=== PATIENT | female | born 1985 | race Caucasian/White ===

== ENCOUNTER 2018-03-18 19:00 | Inpatient (IN) | payer MEDICAID ==
[~2018-03-18] VITALS: Ht 170.2 cm; Wt 121.6 kg
[2018-03-18 19:10] VITALS: BP_SYST 124
[2018-03-18] MEDS ORDERED: KETOROLAC TROMETHAMINE 30 MG VIAL IVP ONE ×2 (20:00→22:30)
[2018-03-18] MEDS ORDERED: MORPHINE 4 MG/ML INJ. SYRINGE IVP ONE (20:00)
[2018-03-18] MEDS ORDERED: DIPHENHYDRAMINE INJ 50 MG/ML VIAL IVP ONE (20:00)
[2018-03-18 20:01] LABS: HEMATOCRIT 41.2 % (36-48); HEMOGLOBIN 14.4 g/dL (12.0-16.0); MEAN CORPUSCULAR HEMOGLOBIN 31 pg (27-31); MEAN CORPUSCULAR HGB CONC 35 % (32-36); MEAN CORPUSCULAR VOLUME 89 fL (79.0-98.0); PLATELET COUNT (AUTO) 258 K/uL (130-430); RED BLOOD CELL COUNT(AUTO) 4.61 MIL/uL (4.2-6.2); RED CELL DISTRIBUTION WIDTH 11.9 % (9.0-15.0); WHITE BLOOD COUNT (AUTO) 19.3 K/uL (4.8-10.8)
[2018-03-18 20:06] LABS: PROTHROMBIN TIME 10.2 SECS (9.5-12.5)
[2018-03-18 20:11] LABS: BAND % (MANUAL) 2 % (0-6); BASOPHILS % (MANUAL) 0 % (0-2); EOSINOPHILS % (MANUAL) 0 % (0-7); LYMPHOCYTES % (MANUAL) 7 % (20-46); MONOCYTES % (MANUAL) 0 % (0-11)
[2018-03-18 20:15] LABS: ALBUMIN 4.3 g/dL (3.4-4.8); CALCIUM 9.9 mg/dL (8.4-11.0); POTASSIUM 3.7 mmol/L (3.5-5.1); TOTAL BILIRUBIN 0.9 mg/dL (0.0-1.0)
[2018-03-18 20:23] LABS: CREATININE 1.14 mg/dL (0.55-1.30)
[2018-03-18 20:40] LABS: BILIRUBIN,URINE NEGATIVE (NEGATIVE); BLOOD, URINE 2+ (NEGATIVE); CLARITY/URINE SL CLOUDY (CLEAR); COLOR,URINE YELLOW (YELLOW); GLUCOSE,URINE NEGATIVE (NEGATIVE); KETONES,URINE 1+ (NEGATIVE); LEUKOCYTE ESTERASE ,URINE 2+ (NEGATIVE); NITRITE, URINE NEGATIVE (NEGATIVE); PH,URINE 5.5 (5.0-8.0); PROTEIN URINE TRACE (NEGATIVE); UROBILINOGEN,URINE 0.2 (0.2-1.0)
[2018-03-18 20:45] LABS: BACTERIA,URINE MODERATE /HPF (None Seen); RBC,URINE 50-80 /HPF (0-3); WBC,URINE >100 /HPF (0-3)
[2018-03-18] MEDS ORDERED: PIPERACILLIN/TAZO 3.375 GM in NS 50 ML IV ONE (21:30)
[2018-03-18] MEDS ORDERED: PIPERACILLIN/TAZOBACTAM 3.375 GM/VIAL (ZOSYN) IV ONE ×2 (21:36→23:46)
[2018-03-18] MEDS ORDERED: MORPHINE 2 MG/ML INJ. SYRINGE IVP ONE (22:30)
[2018-03-18] MEDS ORDERED: TEMAZEPAM 15 MG CAPSULE PO PRN (22:45)
[2018-03-18] MEDS ORDERED: ONDANSETRON HCL 4 MG/2 ML VIAL IVP PRN (22:45)
[2018-03-18] MEDS ORDERED: DIPHENHYDRAMINE INJ 50 MG/ML VIAL IVP PRN ×2 (22:45→23:15)
[2018-03-18] MEDS ORDERED: MORPHINE 4 MG/ML INJ. SYRINGE IVP PRN (22:45)
[2018-03-18] MEDS ORDERED: NACL 0.9% IV ONE (23:00)
[2018-03-18] MEDS ORDERED: GENTAMICIN 100 mg/50 mL NS 50 ML IV ONE ×2 (23:00→23:46)
[2018-03-18 23:03] VITALS: BP_SYST 122
[2018-03-18] MEDS: TAMSULOSIN HCL 0.4 MG CAP PO SCH (23:34)
[2018-03-18] MEDS: ONDANSETRON HCL 4 MG/2 ML VIAL IVP PRN (23:54)
[2018-03-19 02:00] VITALS: BP_SYST 115
[2018-03-19 03:19] VITALS: BP_SYST 104
[2018-03-19] MEDS: NACL 0.9% 1,000 ML IV SCH ×4 (04:40→18:10)
[2018-03-19] MEDS: PIPERACILLIN/TAZO 3.375/DEX-IS 50 ML IV SCH ×3 (05:35→17:40)
[2018-03-19] MEDS: MORPHINE 4 MG/ML INJ. SYRINGE IVP PRN ×2 (06:30→11:52)
[2018-03-19 06:53] LABS: INR 1.1 (0.8-1.2); PROTHROMBIN TIME 10.9 SECS (9.5-12.5)
[2018-03-19 07:03] LABS: BASOPHILS # (AUTO) 0.1 K/uL (0.0-0.2); BASOPHILS % (AUTO) 0.2 % (0.0-2.0); HEMATOCRIT 33.7 % (36-48); HEMOGLOBIN 11.8 g/dL (12.0-16.0); LYMPHOCYTES # (AUTO) 0.2 K/uL (1.0-5.5); LYMPHOCYTES % (AUTO) 0.8 % (20.5-51.5); MEAN CORPUSCULAR HEMOGLOBIN 31 pg (27-31); MEAN CORPUSCULAR HGB CONC 35 % (32-36); MEAN CORPUSCULAR VOLUME 89 fL (79.0-98.0); MONOCYTES # (AUTO) 0.5 K/uL (0.0-1.0); MONOCYTES % (AUTO) 1.8 % (1.7-9.3); NEUTROPHILS # (AUTO) 26.2 K/uL (1.8-7.7); NEUTROPHILS % (AUTO) 97.2 % (40.0-70.0); PLATELET COUNT (AUTO) 201 K/uL (130-430); RED CELL DISTRIBUTION WIDTH 12.2 % (9.0-15.0)
[2018-03-19 07:32] LABS: ALBUMIN 2.9 g/dL (3.4-4.8); CALCIUM 8.1 mg/dL (8.4-11.0); CREATININE 1.2 mg/dL (0.55-1.30); POTASSIUM 3.8 mmol/L (3.5-5.1)
[2018-03-19 08:00] VITALS: BP_SYST 119
[2018-03-19] MEDS: TAMSULOSIN HCL 0.4 MG CAP PO SCH ×2 (08:21→23:18)
[2018-03-19] MEDS ORDERED: GENTAMICIN 100 mg/50 mL NS 50 ML IV ONE (12:00)
[2018-03-19 12:02] VITALS: BP_SYST 135
[2018-03-19] MEDS: ACETAMINOPHEN 325 MG TABLET PO PRN (12:04)
[2018-03-19 16:02] VITALS: BP_SYST 124
[2018-03-19] MEDS: ONDANSETRON HCL 4 MG/2 ML VIAL IVP PRN (18:33)
[2018-03-20] MEDS: NACL 0.9% 1,000 ML IV SCH ×5 (00:13→23:17)
[2018-03-20] MEDS: PIPERACILLIN/TAZO 3.375/DEX-IS 50 ML IV SCH ×5 (00:13→23:17)
[2018-03-20 00:28] VITALS: BP_SYST 134
[2018-03-20] MEDS: MORPHINE 4 MG/ML INJ. SYRINGE IVP PRN ×2 (03:42→11:16)
[2018-03-20 06:47] LABS: BASOPHILS % (AUTO) 0.1 % (0.0-2.0); EOSINOPHILS % (AUTO) 0.2 % (0.0-4.0); HEMATOCRIT 35.5 % (36-48); HEMOGLOBIN 12.2 g/dL (12.0-16.0); LYMPHOCYTES # (AUTO) 0.9 K/uL (1.0-5.5); LYMPHOCYTES % (AUTO) 5.4 % (20.5-51.5); MEAN CORPUSCULAR HEMOGLOBIN 30 pg (27-31); MEAN CORPUSCULAR HGB CONC 34 % (32-36); MEAN CORPUSCULAR VOLUME 88 fL (79.0-98.0); MONOCYTES # (AUTO) 0.8 K/uL (0.0-1.0); MONOCYTES % (AUTO) 4.9 % (1.7-9.3); NEUTROPHILS # (AUTO) 15.1 K/uL (1.8-7.7); NEUTROPHILS % (AUTO) 89.4 % (40.0-70.0); PLATELET COUNT (AUTO) 170 K/uL (130-430); RED BLOOD CELL COUNT(AUTO) 4.05 MIL/uL (4.2-6.2); RED CELL DISTRIBUTION WIDTH 12.5 % (9.0-15.0); WHITE BLOOD COUNT (AUTO) 16.8 K/uL (4.8-10.8)
[2018-03-20 06:58] LABS: CALCIUM 8.5 mg/dL (8.4-11.0); CREATININE 0.88 mg/dL (0.55-1.30); POTASSIUM 3.8 mmol/L (3.5-5.1)
[2018-03-20 08:00] VITALS: BP_SYST 116
[2018-03-20] MEDS: TAMSULOSIN HCL 0.4 MG CAP PO SCH ×2 (08:05→20:22)
[2018-03-20] MEDS ORDERED: QUEtiapine FUMARATE 25 MG TABLET PO SCH (09:00)
[2018-03-20] MEDS: ONDANSETRON HCL 4 MG/2 ML VIAL IVP PRN ×3 (11:32→21:57)
[2018-03-20] MEDS ORDERED: GENTAMICIN 100 mg/50 mL NS 50 ML IV ONE (12:00)
[2018-03-20 12:02] VITALS: BP_SYST 117
[2018-03-20 16:02] VITALS: BP_SYST 122
[2018-03-20 20:00] VITALS: BP_SYST 129
[2018-03-20] MEDS: ACETAMINOPHEN 325 MG TABLET PO PRN (21:56)
[2018-03-21] VITALS: BP_SYST 124
[2018-03-21] MEDS: PIPERACILLIN/TAZO 3.375/DEX-IS 50 ML IV SCH (05:00)
[2018-03-21] MEDS: ACETAMINOPHEN 325 MG TABLET PO PRN (05:02)
[2018-03-21 07:13] LABS: BASOPHILS # (AUTO) 0.1 K/uL (0.0-0.2); BASOPHILS % (AUTO) 0.4 % (0.0-2.0); EOSINOPHILS # (AUTO) 0.2 K/uL (0.0-0.4); EOSINOPHILS % (AUTO) 1.2 % (0.0-4.0); HEMATOCRIT 33.2 % (36-48); HEMOGLOBIN 11.4 g/dL (12.0-16.0); LYMPHOCYTES # (AUTO) 1.6 K/uL (1.0-5.5); LYMPHOCYTES % (AUTO) 10.2 % (20.5-51.5); MEAN CORPUSCULAR HEMOGLOBIN 31 pg (27-31); MEAN CORPUSCULAR HGB CONC 34 % (32-36); MEAN CORPUSCULAR VOLUME 89 fL (79.0-98.0); MONOCYTES # (AUTO) 0.8 K/uL (0.0-1.0); MONOCYTES % (AUTO) 5.3 % (1.7-9.3); NEUTROPHILS # (AUTO) 12.9 K/uL (1.8-7.7); NEUTROPHILS % (AUTO) 82.9 % (40.0-70.0); PLATELET COUNT (AUTO) 169 K/uL (130-430); RED BLOOD CELL COUNT(AUTO) 3.72 MIL/uL (4.2-6.2); RED CELL DISTRIBUTION WIDTH 12.3 % (9.0-15.0); WHITE BLOOD COUNT (AUTO) 15.6 K/uL (4.8-10.8)
[2018-03-21 07:23] LABS: ALBUMIN 2.5 g/dL (3.4-4.8); CALCIUM 8.7 mg/dL (8.4-11.0); CREATININE 0.77 mg/dL (0.55-1.30); POTASSIUM 3.4 mmol/L (3.5-5.1)
[2018-03-21 08:08] VITALS: BP_SYST 123
[2018-03-21] MEDS: TAMSULOSIN HCL 0.4 MG CAP PO SCH ×2 (09:08→21:41)
[2018-03-21] MEDS: ONDANSETRON HCL 4 MG/2 ML VIAL IVP PRN ×3 (10:53→21:42)
[2018-03-21] MEDS: KETOROLAC TROMETHAMINE 15 MG VIAL IVP PRN ×2 (10:54→21:42)
[2018-03-21] MEDS: NACL 0.9% 1,000 ML IV SCH ×2 (10:59→17:12)
[2018-03-21 12:02] VITALS: BP_SYST 133
[2018-03-21] MEDS ORDERED: POTASSIUM CHLORIDE 20 MEQ TAB.PRT.SR PO ONE (14:00)
[2018-03-21 15:19] VITALS: BP_SYST 134
[2018-03-21 20:00] VITALS: BP_SYST 130
[2018-03-22 00:46] VITALS: BP_SYST 129
[2018-03-22] MEDS: NACL 0.9% 1,000 ML IV SCH ×4 (01:17→16:37)
[2018-03-22 06:55] LABS: BASOPHILS # (AUTO) 0.1 K/uL (0.0-0.2); EOSINOPHILS # (AUTO) 0.2 K/uL (0.0-0.4); EOSINOPHILS % (AUTO) 1.2 % (0.0-4.0); HEMATOCRIT 31.4 % (36-48); HEMOGLOBIN 10.9 g/dL (12.0-16.0); LYMPHOCYTES # (AUTO) 2.5 K/uL (1.0-5.5); LYMPHOCYTES % (AUTO) 18.4 % (20.5-51.5); MEAN CORPUSCULAR HEMOGLOBIN 31 pg (27-31); MEAN CORPUSCULAR HGB CONC 35 % (32-36); MEAN CORPUSCULAR VOLUME 89 fL (79.0-98.0); MONOCYTES % (AUTO) 7.3 % (1.7-9.3); NEUTROPHILS # (AUTO) 9.9 K/uL (1.8-7.7); NEUTROPHILS % (AUTO) 72.1 % (40.0-70.0); PLATELET COUNT (AUTO) 184 K/uL (130-430); RED BLOOD CELL COUNT(AUTO) 3.53 MIL/uL (4.2-6.2); RED CELL DISTRIBUTION WIDTH 12.7 % (9.0-15.0); WHITE BLOOD COUNT (AUTO) 13.7 K/uL (4.8-10.8)
[2018-03-22 07:05] LABS: ALBUMIN 2.5 g/dL (3.4-4.8); CALCIUM 8.6 mg/dL (8.4-11.0); CREATININE 0.86 mg/dL (0.55-1.30); POTASSIUM 3.5 mmol/L (3.5-5.1); TOTAL BILIRUBIN 0.9 mg/dL (0.0-1.0)
[2018-03-22 08:02] VITALS: BP_SYST 144
[2018-03-22] MEDS: TAMSULOSIN HCL 0.4 MG CAP PO SCH ×2 (08:51→20:37)
[2018-03-22 11:26] VITALS: BP_SYST 123
[2018-03-22 15:52] VITALS: BP_SYST 131
[2018-03-22 20:00] VITALS: BP_SYST 120
[2018-03-22] MEDS: ONDANSETRON HCL 4 MG/2 ML VIAL IVP PRN (20:37)
[2018-03-22] MEDS: KETOROLAC TROMETHAMINE 15 MG VIAL IVP PRN (22:03)
[2018-03-23] VITALS: BP_SYST 138
[2018-03-23] MEDS: NACL 0.9% 1,000 ML IV SCH ×3 (00:38→08:53)
[2018-03-23 06:40] VITALS: BP_SYST 128
[2018-03-23 07:11] LABS: CALCIUM 8.8 mg/dL (8.4-11.0); CREATININE 0.86 mg/dL (0.55-1.30); POTASSIUM 3.2 mmol/L (3.5-5.1)
[2018-03-23 07:46] LABS: BASOPHILS # (AUTO) 0.1 K/uL (0.0-0.2); BASOPHILS % (AUTO) 0.5 % (0.0-2.0); EOSINOPHILS # (AUTO) 0.2 K/uL (0.0-0.4); EOSINOPHILS % (AUTO) 1.7 % (0.0-4.0); HEMATOCRIT 32.9 % (36-48); HEMOGLOBIN 11.1 g/dL (12.0-16.0); LYMPHOCYTES # (AUTO) 2.9 K/uL (1.0-5.5); LYMPHOCYTES % (AUTO) 23.4 % (20.5-51.5); MEAN CORPUSCULAR HEMOGLOBIN 30 pg (27-31); MEAN CORPUSCULAR HGB CONC 34 % (32-36); MEAN CORPUSCULAR VOLUME 89 fL (79.0-98.0); MONOCYTES # (AUTO) 1.1 K/uL (0.0-1.0); MONOCYTES % (AUTO) 9.1 % (1.7-9.3); NEUTROPHILS # (AUTO) 7.9 K/uL (1.8-7.7); NEUTROPHILS % (AUTO) 65.3 % (40.0-70.0); PLATELET COUNT (AUTO) 231 K/uL (130-430); RED CELL DISTRIBUTION WIDTH 12.5 % (9.0-15.0); WHITE BLOOD COUNT (AUTO) 12.2 K/uL (4.8-10.8)
[2018-03-23] MEDS ORDERED: LR 1,000 ML IV SCH (08:17)
[2018-03-23] MEDS ORDERED: MORPHINE 4 MG/ML INJ. SYRINGE IVP PRN ×2 (08:30)
[2018-03-23] MEDS ORDERED: METOCLOPRAMIDE HCL 10 MG/2 ML VIAL IVP PRN (08:30)
[2018-03-23] MEDS ORDERED: LR 1,000 ML IV.SOLN IV ONE (08:55)
[2018-03-23] MEDS ORDERED: ONDANSETRON HCL 4 MG/2 ML VIAL ONE (08:55)
[2018-03-23] MEDS ORDERED: NS IRRIG SOLN 1000 ML IR ONE (08:55)
[2018-03-23] MEDS ORDERED: ROCURONIUM BROMIDE 10 MG/ML (ZEMURON) ONE (08:55)
[2018-03-23] MEDS ORDERED: MIDAZOLAM HCL 5 MG/ML VIAL (VERSED) IV ONE (08:55)
[2018-03-23] MEDS ORDERED: PHENYLEPHRINE HCL 10 MG/ML VIAL (NEOSYNEPHRINE) ONE (08:55)
[2018-03-23] MEDS ORDERED: GLYCOPYRROLATE 0.2 MG/ML VIAL ONE (08:55)
[2018-03-23] MEDS ORDERED: fentaNYL CITRATE 250 MCG/5 ML AMP ONE (08:55)
[2018-03-23] MEDS ORDERED: NEOSTIGMINE METHYLSULFATE 1 MG/ML, 10 ML VIAL ONE (08:55)
[2018-03-23] MEDS ORDERED: NS 1000 ML IV.SOLN IV ONE (08:55)
[2018-03-23] MEDS ORDERED: CEFAZOLIN 2 GM IVPB PREMIX 50 ML IV ONE (08:55)
[2018-03-23] MEDS ORDERED: PROPOFOL 200MG/ 20ML VIAL (DIPRIVAN) IV ONE (08:55)
[2018-03-23] MEDS ORDERED: SEVOFLURANE 15 MIN GAS INH ONE (08:55)
[2018-03-23] MEDS ORDERED: ONDANSETRON HCL 4 MG/2 ML VIAL IVP PRN (09:00)
[2018-03-23] MEDS ORDERED: ACETAMINOPHEN 325 MG TABLET PO PRN (09:00)
[2018-03-23] MEDS ORDERED: MORPHINE 4 MG/ML INJ. SYRINGE ONE (09:19)
[2018-03-23] MEDS: MORPHINE 4 MG/ML INJ. SYRINGE IVP PRN ×2 (09:30→09:45)
[2018-03-23 09:32] VITALS: BP_SYST 128
[2018-03-23] MEDS ORDERED: METOCLOPRAMIDE HCL 10 MG/2 ML VIAL ONE (09:32)
[2018-03-23] MEDS ORDERED: POTASSIUM CHLORIDE 20 MEQ TAB.PRT.SR PO ONE (09:45)
[2018-03-23 10:10] VITALS: BP_SYST 144
[2018-03-23] MEDS: TAMSULOSIN HCL 0.4 MG CAP PO SCH ×2 (10:15→20:59)
[2018-03-23] MEDS: KETOROLAC TROMETHAMINE 15 MG VIAL IVP PRN ×2 (13:01→20:56)
[2018-03-23] MEDS: metroNIDAZOLE 500 mg/NS 100 ML IV SCH ×2 (14:03→20:58)
[2018-03-23] MEDS: CEFAZOLIN 1 GM IVPB PREMIX 50 ML IV SCH ×2 (15:25→22:27)
[2018-03-23 16:00] VITALS: BP_SYST 135
[2018-03-23 20:00] VITALS: BP_SYST 137
[2018-03-23] MEDS ORDERED: CEFAZOLIN 1 GM IVPB PREMIX 50 ML IV ONE (21:50)
[2018-03-24] MEDS: NACL 0.9% 1,000 ML IV SCH ×4 (00:06→21:22)
[2018-03-24 00:45] VITALS: BP_SYST 152
[2018-03-24 06:49] LABS: ALBUMIN 2.5 g/dL (3.4-4.8); CALCIUM 8.4 mg/dL (8.4-11.0); CREATININE 0.68 mg/dL (0.55-1.30); POTASSIUM 3.2 mmol/L (3.5-5.1); TOTAL BILIRUBIN 0.8 mg/dL (0.0-1.0)
[2018-03-24 07:18] LABS: BASOPHILS % (AUTO) 0.2 % (0.0-2.0); EOSINOPHILS # (AUTO) 0.2 K/uL (0.0-0.4); EOSINOPHILS % (AUTO) 1.4 % (0.0-4.0); HEMATOCRIT 33.4 % (36-48); HEMOGLOBIN 11.5 g/dL (12.0-16.0); LYMPHOCYTES # (AUTO) 2.2 K/uL (1.0-5.5); LYMPHOCYTES % (AUTO) 15.4 % (20.5-51.5); MEAN CORPUSCULAR HEMOGLOBIN 31 pg (27-31); MEAN CORPUSCULAR HGB CONC 34 % (32-36); MEAN CORPUSCULAR VOLUME 89 fL (79.0-98.0); MONOCYTES % (AUTO) 7.1 % (1.7-9.3); NEUTROPHILS % (AUTO) 75.9 % (40.0-70.0); PLATELET COUNT (AUTO) 282 K/uL (130-430); RED BLOOD CELL COUNT(AUTO) 3.75 MIL/uL (4.2-6.2); RED CELL DISTRIBUTION WIDTH 11.9 % (9.0-15.0); WHITE BLOOD COUNT (AUTO) 14.4 K/uL (4.8-10.8)
[2018-03-24 08:09] VITALS: BP_SYST 140
[2018-03-24] MEDS: TAMSULOSIN HCL 0.4 MG CAP PO SCH ×2 (08:48→21:22)
[2018-03-24 12:18] VITALS: BP_SYST 134
[2018-03-24] MEDS ORDERED: POTASSIUM CHLORIDE 20 MEQ TAB.PRT.SR PO ONE (12:30)
[2018-03-24 16:00] VITALS: BP_SYST 127
[2018-03-24 20:00] VITALS: BP_SYST 123
[2018-03-25 00:06] VITALS: BP_SYST 127
[2018-03-25] MEDS: NACL 0.9% 1,000 ML IV SCH (05:39)
[2018-03-25 07:08] LABS: BASOPHILS % (AUTO) 0.3 % (0.0-2.0); EOSINOPHILS # (AUTO) 0.4 K/uL (0.0-0.4); EOSINOPHILS % (AUTO) 2.8 % (0.0-4.0); HEMATOCRIT 34.9 % (36-48); HEMOGLOBIN 11.3 g/dL (12.0-16.0); LYMPHOCYTES # (AUTO) 2.9 K/uL (1.0-5.5); LYMPHOCYTES % (AUTO) 18.6 % (20.5-51.5); MEAN CORPUSCULAR HEMOGLOBIN 29 pg (27-31); MEAN CORPUSCULAR HGB CONC 32 % (32-36); MEAN CORPUSCULAR VOLUME 89 fL (79.0-98.0); MONOCYTES % (AUTO) 6.6 % (1.7-9.3); NEUTROPHILS # (AUTO) 11.4 K/uL (1.8-7.7); NEUTROPHILS % (AUTO) 71.7 % (40.0-70.0); PLATELET COUNT (AUTO) 313 K/uL (130-430); RED BLOOD CELL COUNT(AUTO) 3.92 MIL/uL (4.2-6.2); RED CELL DISTRIBUTION WIDTH 12.1 % (9.0-15.0); WHITE BLOOD COUNT (AUTO) 15.7 K/uL (4.8-10.8)
[2018-03-25 07:30] LABS: ALBUMIN 2.6 g/dL (3.4-4.8); CALCIUM 8.6 mg/dL (8.4-11.0); CREATININE 0.75 mg/dL (0.55-1.30); POTASSIUM 3.4 mmol/L (3.5-5.1); TOTAL BILIRUBIN 0.7 mg/dL (0.0-1.0)
[2018-03-25 08:00] VITALS: BP_SYST 130
[2018-03-25] MEDS: TAMSULOSIN HCL 0.4 MG CAP PO SCH (09:32)
[2018-03-25] MEDS ORDERED: POTASSIUM CHLORIDE 20 MEQ TAB.PRT.SR PO ONE (10:30)
[2018-03-25] MEDS ORDERED: BISACODYL 10 MG/SUPPOSITORY RC ONE (10:45)
[2018-03-25] MEDS ORDERED: BISACODYL 5 MG TABLET.DR (DULCOLAX) PO PRN (10:45)
[2018-03-25] MEDS ORDERED: MILK OF MAGNESIA 30 ML UDC PO PRN ×2 (10:45)
[2018-03-25] MEDS ORDERED: FLUCONAZOLE 200 mg/ NS 100 ML IV SCH (11:45)
[2018-03-25 12:14] VITALS: BP_SYST 130
[2018-03-25] MEDS ORDERED: LEVO250T2 PO (12:23)
[2018-03-25] MEDS ORDERED: POTA20TA83 PO (12:32)
[2018-03-25] MEDS ORDERED: L.RH1CAP PO (12:33)
[2018-03-25 12:35] VITALS: BP_SYST 130
[2018-03-25] MEDS ORDERED: POTASSIUM CHLORIDE 20 MEQ TAB.PRT.SR PO SCH (21:00)
== END 2018-03-25 14:05 | disposition home or self-care (01) | DRG 710 ==
LOC: SED 19:00 → SMU 22:12
PROVIDERS: ADMIT Internal Medicine; ATTEND Internal Medicine
PROC: 0FT44ZZ Resection of Gallbladder, Percutaneous Endoscopic Approach (ICD-10-PCS; principal; 2018-03-23 07:30)
DX: A41.59 Other Gram-negative sepsis (principal); K80.00 Calculus of gallbladder with acute cholecystitis without obstruction; E44.1 Mild protein-calorie malnutrition; E66.01 Morbid (severe) obesity due to excess calories; B96.1 Klebsiella pneumoniae [K. pneumoniae] as the cause of diseases classified elsewhere; K66.0 Peritoneal adhesions (postprocedural) (postinfection); N20.1 Calculus of ureter; K57.90 Diverticulosis of intestine, part unspecified, without perforation or abscess without bleeding; E87.6 Hypokalemia; K59.00 Constipation, unspecified; N10 Acute pyelonephritis; Z88.1 Allergy status to other antibiotic agents; Z68.41 Body mass index [BMI] 40.0-44.9, adult; Z87.442 Personal history of urinary calculi
CPT/HCPCS: 36415; 71045; 76700-TC; 76770; 78226; 80048; 80053; 81000-TC; 82360; 83605; 83690-TC; 83735-TC; 84550-TC; 84703; 85007; 85025; 85027; 85610-TC; 85730-TC; 87040-TC; 87081; 87086; 87186-TC; 88300; 88304; 93005; 94010; 96365; 96375; 96376; 99285; A9537; C1727; J0690; J0696; J1200; J1450; J1580; J1885; J2250; J2270; J2370; J2405; J2543; J2704; J2710; J2765; J3010; J3490; J7030; J7060; J7120

== ENCOUNTER 2019-03-23 19:44 | Emergency (ER) | payer SELFPAY ==
[~2019-03-23] VITALS: Ht 167.6 cm; Wt 99.8 kg
[~2019-03-23 19:44] MED LIST: L.RH1CAP PO; LEVO250T2 PO; POTA20TA83 PO
[2019-03-23 19:50] VITALS: BP_SYST 153
[2019-03-23] MEDS ORDERED: IBUPROFEN 800 MG TABLET PO ONE (20:45)
[2019-03-23 22:34] VITALS: BP_SYST 137
== END 2019-03-23 22:34 | disposition home or self-care (01) ==
LOC: SED 19:44
DX: S93.492A Sprain of other ligament of left ankle, initial encounter (principal); Z79.899 Other long term (current) drug therapy; Z88.2 Allergy status to sulfonamides; Z87.442 Personal history of urinary calculi; W22.8XXA Striking against or struck by other objects, initial encounter; Y93.89 Activity, other specified; Y92.89 Other specified places as the place of occurrence of the external cause; Y99.8 Other external cause status
CPT/HCPCS: 81025; 99283

== ENCOUNTER 2019-05-20 13:42 | Emergency (ER) | payer MEDICAID ==
[~2019-05-20] VITALS: Ht 167.6 cm; Wt 120.2 kg
[2019-05-20 13:49] VITALS: BP_SYST 133
[2019-05-20 14:54] LABS: BASOPHILS % (AUTO) 0.4 % (0.0-2.0); EOSINOPHILS # (AUTO) 0.1 K/uL (0.0-0.4); HEMATOCRIT 40.4 % (36-48); HEMOGLOBIN 13.8 g/dL (12.0-16.0); LYMPHOCYTES # (AUTO) 2.5 K/uL (1.0-5.5); LYMPHOCYTES % (AUTO) 20.6 % (20.5-51.5); MEAN CORPUSCULAR HEMOGLOBIN 30 pg (27-31); MEAN CORPUSCULAR HGB CONC 34 % (32-36); MEAN CORPUSCULAR VOLUME 87 fL (79.0-98.0); MONOCYTES # (AUTO) 0.6 K/uL (0.0-1.0); MONOCYTES % (AUTO) 5.4 % (1.7-9.3); NEUTROPHILS # (AUTO) 8.7 K/uL (1.8-7.7); NEUTROPHILS % (AUTO) 72.6 % (40.0-70.0); PLATELET COUNT (AUTO) 300 K/uL (130-430); RED BLOOD CELL COUNT(AUTO) 4.63 MIL/uL (4.2-6.2); RED CELL DISTRIBUTION WIDTH 13.2 % (9.0-15.0); WHITE BLOOD COUNT (AUTO) 11.9 K/uL (4.8-10.8)
[2019-05-20 15:04] LABS: CALCIUM 9.1 mg/dL (8.4-11.0); CREATININE 0.72 mg/dL (0.55-1.30); POTASSIUM 3.7 mmol/L (3.5-5.1)
[2019-05-20 15:30] LABS: TOTAL BILIRUBIN 0.6 mg/dL (0.0-1.0)
[2019-05-20 16:18] VITALS: BP_SYST 126
== END 2019-05-20 16:50 | disposition home or self-care (01) ==
LOC: SED 13:42
DX: O03.9 Complete or unspecified spontaneous abortion without complication (principal)
CPT/HCPCS: 36415; 76801; 76817; 80053; 81002; 81025; 84702-TC; 85025; 86901; 99284

== ENCOUNTER 2019-05-26 17:00 | Emergency (ER) | payer MEDICAID ==
[~2019-05-26] VITALS: Ht 167.6 cm; Wt 120.2 kg
[2019-05-26 17:00] VITALS: BP_SYST 118
--- NOTE | 2019-05-26 17:04 | NUR ---
Patient triaged and placed in waiting room. VSS and patient appears in no acute distress at this time. Accompanied by SPOUSE, awaiting available bed, and MD notified of need for MSE.
--- NOTE | 2019-05-26 17:21 | NUR ---
NENA Beckford at bedside examining patient.
--- NOTE | 2019-05-26 17:21 | NUR ---
Patient to ER bed 5 to gown for evaluation. Side rails up.
--- NOTE | 2019-05-26 17:30 | NUR ---
Pt came to ER after experiencing lower abd cramping and passing clots. She is currently in the room resting no other complaints at this time
[2019-05-26] MEDS ORDERED: NACL 0.9% 1,000 ML IV ONE (17:45)
[2019-05-26] MEDS ORDERED: KETOROLAC TROMETHAMINE 30 MG VIAL IVP ONE (17:45)
--- NOTE | 2019-05-26 18:12 | NUR ---
# 22 gauge angiocath placed to rac. Use of asceptic technique. Opsite placed over site. Blood return noted. Blood for lab drawn from site. Flushed with 10 cc of normal saline. No evidence of infiltration noted. Patient tolerated well.
--- NOTE | 2019-05-26 18:12 | NUR ---
toradol IVP given. NS 1l infusing per MD order/
--- NOTE | 2019-05-26 18:13 | NUR ---
Patient transported to radiology via WC, accompanied by US tech.
[2019-05-26 18:38] LABS: CALCIUM 8.9 mg/dL (8.4-11.0); CREATININE 0.78 mg/dL (0.55-1.30); POTASSIUM 3.5 mmol/L (3.5-5.1)
[2019-05-26 18:44] LABS: ALBUMIN 3.8 g/dL (3.4-4.8); TOTAL BILIRUBIN 0.6 mg/dL (0.0-1.0)
--- NOTE | 2019-05-26 18:59 | NUR ---
pt is still in US
--- NOTE | 2019-05-26 19:10 | NUR ---
PT RETURNED FROM US
--- NOTE | 2019-05-26 19:28 | NUR ---
report given to Wei RONDON
[2019-05-26 19:40] VITALS: BP_SYST 122
--- NOTE | 2019-05-26 19:40 | NUR ---
Patient given written and verbal discharge instructions and verbalizes understanding. ER MD discussed with patient the results and treatment provided. Patient in stable condition. ID arm band removed. IV catheter removed intact and dressing applied, no active bleeding. Rx of Ibuprofen and Zofran given. Patient educated on pain management and to follow up with PMD. Pain Scale 1/10. Opportunity for questions provided and answered. Medication side effect fact sheet provided.
== END 2019-05-26 19:40 | disposition home or self-care (01) ==
LOC: SED 17:00
DX: O03.9 Complete or unspecified spontaneous abortion without complication (principal); Z3A.01 Less than 8 weeks gestation of pregnancy; Z87.442 Personal history of urinary calculi; Z90.49 Acquired absence of other specified parts of digestive tract; Z88.2 Allergy status to sulfonamides
CPT/HCPCS: 36415; 76830; 76857; 80053; 84702; 96374; 99284; J1885; J7030

== ENCOUNTER 2019-12-28 12:58 | Emergency (ER) | payer MEDICAID ==
[~2019-12-28] VITALS: Ht 167.6 cm; Wt 122.5 kg
[2019-12-28 13:09] VITALS: BP_SYST 159
[2019-12-28] MEDS: NS 500 ML IV ONE (14:10)
[2019-12-28 14:11] LABS: BASOPHILS # (AUTO) 0.1 K/uL (0.0-0.2); BASOPHILS % (AUTO) 0.7 % (0.0-2.0); EOSINOPHILS # (AUTO) 0.1 K/uL (0.0-0.4); EOSINOPHILS % (AUTO) 0.9 % (0.0-4.0); HEMATOCRIT 41.4 % (36-48); HEMOGLOBIN 13.6 g/dL (12.0-16.0); LYMPHOCYTES # (AUTO) 2.2 K/uL (1.0-5.5); LYMPHOCYTES % (AUTO) 16.9 % (20.5-51.5); MEAN CORPUSCULAR HEMOGLOBIN 28 pg (27-31); MEAN CORPUSCULAR HGB CONC 33 % (32-36); MEAN CORPUSCULAR VOLUME 86 fL (79.0-98.0); MONOCYTES # (AUTO) 0.8 K/uL (0.0-1.0); NEUTROPHILS # (AUTO) 9.9 K/uL (1.8-7.7); NEUTROPHILS % (AUTO) 75.5 % (40.0-70.0); PLATELET COUNT (AUTO) 300 K/uL (130-430); RED BLOOD CELL COUNT(AUTO) 4.82 MIL/uL (4.2-6.2); RED CELL DISTRIBUTION WIDTH 12.9 % (9.0-15.0); WHITE BLOOD COUNT (AUTO) 13.1 K/uL (4.8-10.8)
[2019-12-28 14:14] LABS: BILIRUBIN,URINE NEGATIVE (NEGATIVE); COLOR,URINE YELLOW (YELLOW); GLUCOSE,URINE NEGATIVE (NEGATIVE); KETONES,URINE NEGATIVE (NEGATIVE); LEUKOCYTE ESTERASE ,URINE NEGATIVE (NEGATIVE); NITRITE, URINE NEGATIVE (NEGATIVE); PH,URINE 6.5 (5.0-8.0); PROTEIN URINE NEGATIVE (NEGATIVE); UROBILINOGEN,URINE 0.2 (0.2-1.0)
[2019-12-28 14:18] LABS: BLOOD, URINE TRACE (NEGATIVE)
[2019-12-28 14:19] LABS: CLARITY/URINE SLIGHTLY HAZY (CLEAR)
[2019-12-28 14:27] LABS: CREATININE 0.76 mg/dL (0.55-1.30); POTASSIUM 3.7 mmol/L (3.5-5.1)
[2019-12-28 14:27] LABS: BACTERIA,URINE None Seen /HPF (None Seen); TRICHOMONAS,URINE None Seen /HPF (None Seen); WBC,URINE NONE SEEN /HPF (0-3); YEAST,URINE None Seen /HPF (None Seen)
[2019-12-28 14:32] LABS: ALBUMIN 3.7 g/dL (3.4-4.8); TOTAL BILIRUBIN 0.9 mg/dL (0.0-1.0)
[2019-12-28] MEDS: ACETAMINOPHEN 500 MG TABLET PO ONE (16:03)
[2019-12-28 16:04] VITALS: BP_SYST 144
== END 2019-12-28 16:09 | disposition home or self-care (01) ==
LOC: SED 12:58
DX: N83.202 Unspecified ovarian cyst, left side (principal); N83.201 Unspecified ovarian cyst, right side; Z87.442 Personal history of urinary calculi; Z79.899 Other long term (current) drug therapy; Z88.2 Allergy status to sulfonamides
CPT/HCPCS: 36415; 70450; 76830; 76857; 80053; 81000; 81025; 82962; 85025; 96360; 99285; J7030

== ENCOUNTER 2021-08-11 08:20 | Emergency (ER) | payer MEDICAID ==
[~2021-08-11] VITALS: Ht 167.6 cm; Wt 108.9 kg
[~2021-08-11 08:20] MED LIST changes: +POTA-197 PO; -POTA20TA83 PO
[2021-08-11 08:30] VITALS: BP_SYST 144
[2021-08-11 10:14] LABS: BASOPHILS # (AUTO) 0.1 K/uL (0.0-0.2); BASOPHILS % (AUTO) 0.5 % (0.0-2.0); EOSINOPHILS # (AUTO) 0.1 K/uL (0.0-0.4); EOSINOPHILS % (AUTO) 0.6 % (0.0-4.0); HEMATOCRIT 38.2 % (36-48); HEMOGLOBIN 13.3 g/dL (12.0-16.0); LYMPHOCYTES # (AUTO) 2.3 K/uL (1.0-5.5); LYMPHOCYTES % (AUTO) 19.4 % (20.5-51.5); MEAN CORPUSCULAR HEMOGLOBIN 30 pg (27-31); MEAN CORPUSCULAR HGB CONC 35 % (32-36); MEAN CORPUSCULAR VOLUME 86 fL (79.0-98.0); MONOCYTES # (AUTO) 0.5 K/uL (0.0-1.0); MONOCYTES % (AUTO) 4.1 % (1.7-9.3); NEUTROPHILS # (AUTO) 8.7 K/uL (1.8-7.7); NEUTROPHILS % (AUTO) 75.4 % (40.0-70.0); PLATELET COUNT (AUTO) 324 K/uL (130-430); RED BLOOD CELL COUNT(AUTO) 4.47 MIL/uL (4.2-6.2); RED CELL DISTRIBUTION WIDTH 12.6 % (9.0-15.0); WHITE BLOOD COUNT (AUTO) 11.6 K/uL (4.8-10.8)
[2021-08-11 11:13] LABS: INR 0.9 (0.8-1.2); PROTHROMBIN TIME 9.7 SECS (9.5-12.5)
[2021-08-11 11:15] LABS: BILIRUBIN,URINE NEGATIVE (NEGATIVE); BLOOD, URINE 2+ (NEGATIVE); CLARITY/URINE CLEAR (CLEAR); COLOR,URINE YELLOW (YELLOW); GLUCOSE,URINE NEGATIVE (NEGATIVE); KETONES,URINE NEGATIVE (NEGATIVE); LEUKOCYTE ESTERASE ,URINE TRACE (NEGATIVE); NITRITE, URINE NEGATIVE (NEGATIVE); PH,URINE 6.5 (5.0-8.0); PROTEIN URINE NEGATIVE (NEGATIVE); UROBILINOGEN,URINE 0.2 (0.2-1.0)
[2021-08-11 11:22] LABS: BACTERIA,URINE FEW /HPF (None Seen); RBC,URINE 0-3 /HPF (0-3)
[2021-08-11 11:23] LABS: MUCUS,URINE 1+ /LPF (None Seen)
[2021-08-11 12:14] VITALS: BP_SYST 144
== END 2021-08-11 12:14 | disposition home or self-care (01) ==
LOC: SED 08:20
DX: O20.0 Threatened abortion (principal); Z88.2 Allergy status to sulfonamides; Z79.899 Other long term (current) drug therapy; Z3A.01 Less than 8 weeks gestation of pregnancy
CPT/HCPCS: 36415; 76801; 81000; 81025; 84702; 85025; 85610-TC; 85730-TC; 86900; 86901; 87086; 99284

== ENCOUNTER 2022-10-24 09:55 | Emergency (ER) | payer OTHER, MEDICAID ==
[~2022-10-24] VITALS: Ht 167.6 cm; Wt 92.1 kg
--- NOTE | 2022-10-24 10:00 | NUR ---
Patient to ER bed 08 to gown for evaluation. Side rails up.
--- NOTE | 2022-10-24 10:05 | NUR ---
Dr Quintero evaluating patient at bedside
--- NOTE | 2022-10-24 10:05 | NUR ---
Pt brought by self, A&Ox4, pt presents to ER with R flank pain since last night, skin pink and warm, cap refill <3, VSS, respirations even and unlabored, will cont to monitor.
[2022-10-24 10:07] VITALS: BP_SYST 162
[2022-10-24] MEDS ORDERED: KETOROLAC TROMETHAMINE 30 MG VIAL IVP ONE (10:15)
[2022-10-24] MEDS ORDERED: NACL 0.9% 1,000 ML IV ONE (10:15)
[2022-10-24 10:24] LABS: BILIRUBIN,URINE NEGATIVE (NEGATIVE); BLOOD, URINE NEGATIVE (NEGATIVE); CLARITY/URINE CLEAR (CLEAR); COLOR,URINE YELLOW (YELLOW); GLUCOSE,URINE NEGATIVE (NEGATIVE); KETONES,URINE NEGATIVE (NEGATIVE); LEUKOCYTE ESTERASE ,URINE NEGATIVE (NEGATIVE); NITRITE, URINE NEGATIVE (NEGATIVE); PH,URINE 6.5 (5.0-8.0); PROTEIN URINE NEGATIVE (NEGATIVE)
[2022-10-24 10:40] LABS: BASOPHILS # (AUTO) 0.1 K/uL (0.0-0.2); BASOPHILS % (AUTO) 0.8 % (0.0-2.0); EOSINOPHILS # (AUTO) 0.2 K/uL (0.0-0.4); EOSINOPHILS % (AUTO) 1.6 % (0.0-4.0); HEMATOCRIT 38.8 % (36-48); HEMOGLOBIN 13.4 g/dL (12.0-16.0); LYMPHOCYTES # (AUTO) 2.4 K/uL (1.0-5.5); LYMPHOCYTES % (AUTO) 24.1 % (20.5-51.5); MEAN CORPUSCULAR HEMOGLOBIN 29 pg (27-31); MEAN CORPUSCULAR HGB CONC 35 % (32-36); MEAN CORPUSCULAR VOLUME 85 fL (79.0-98.0); MONOCYTES # (AUTO) 0.6 K/uL (0.0-1.0); MONOCYTES % (AUTO) 6.2 % (1.7-9.3); NEUTROPHILS # (AUTO) 6.7 K/uL (1.8-7.7); NEUTROPHILS % (AUTO) 67.3 % (40.0-70.0); PLATELET COUNT (AUTO) 296 K/uL (130-430); RED BLOOD CELL COUNT(AUTO) 4.56 MIL/uL (4.2-6.2); RED CELL DISTRIBUTION WIDTH 13.6 % (9.0-15.0)
--- NOTE | 2022-10-24 10:40 | NUR ---
Pt medicated as ordered, well tolerated
[2022-10-24 10:56] LABS: CALCIUM 8.5 mg/dL (8.4-11.0); CREATININE 0.77 mg/dL (0.55-1.30)
[2022-10-24 11:00] LABS: ALBUMIN 3.9 g/dL (3.4-4.8); TOTAL BILIRUBIN 0.6 mg/dL (0.0-1.0)
--- NOTE | 2022-10-24 11:31 | NUR ---
Patient given written and verbal discharge instructions and verbalizes understanding. ER MD discussed with patient the results and treatment provided. Patient in stable condition. ID arm band removed. Patient educated on pain management and to follow up with PMD. Pain Scale 0/10 . Opportunity for questions provided and answered. Medication side effect fact sheet provided.
[2022-10-24 11:35] VITALS: BP_SYST 133
== END 2022-10-24 11:31 | disposition home or self-care (01) ==
LOC: SED 09:55
DX: N23 Unspecified renal colic (principal); I10 Essential (primary) hypertension; Z88.2 Allergy status to sulfonamides; Z79.899 Other long term (current) drug therapy
CPT/HCPCS: 99285; 74176; 96374; 96361; 80053; 85025; 36415; 76376; 81025; 81003; J1885; J7030